=== PATIENT | female | born 1970 | race Caucasian/White ===

== ENCOUNTER 2016-05-11 11:05 | Day surgery (SDC) | payer OTHER ==
[~2016-05-11] VITALS: Ht 170.2 cm; Wt 133.8 kg
[~2016-05-11 11:05] MED LIST: ARTHROTEC 751 TABLET PO; BACLOFEN10 MG PO; BENADRYL A12.5 MG/5 PO; BENADRYL25 MG PO; BUSPAR30 MG PO; Benadryl PO; Buspar PO; CALAN SR,COVER240 MG PO; CELEBREX200 MG PO; CELEXA20 MG PO; CILOSTAZOL50 MG PO; CITRUCEL500 MG PO; COLACE100 MG PO; CRANBERRY TABL1 EACH PO; CRANBERRY500 M2 PO; Cranberry Extract PO; DAILY VALUE1 EACH PO; DILAUDID4 MG PO; EFFEXOR75 MG PO; ESTROGEN; ESTROVEN MOOD400 MCG PO; EXCEDRIN MIGRA1 EAC3 PO; FLONASE16 G1 BOTH NARES; KEFLEX500 MG PO; KEPPRA500 MG PO; KLONOPIN0.5 M1 PO; KlonoPIN PO; LASIX10 MG PO; LIDODERM 5% P1 PATCH TD; Lioresal PO; MIDRIN1 CAPSULE PO; MIRALAX17 GM PO; MORPHINE; MUCINEX600 MG PO; NAMENDA10 MG PO; NEURONTIN100 MG PO; NEURONTIN300 MG PO; NEXIUM40 MG PO; NICOTINE PATCH1 EAC1 TD; Neurontin PO; OMEPRAZOLE40 M1 PO; OPANA ER10 MG PO; PREVACID30 MG PO; PROMETHAZINE HC25 M1 PO; Phenergan PO; Prevacid Solutab PO; RESTORIL15 MG PO; SENOKOT,SENN1 TABLET PO; SLEEPING PILL; SOMA250 MG PO; TOPAMAX100 MG PO; TOPAMAX200 MG PO; TYLENOL EXTRA500 MG PO; Theragran PO; VALIUM5 MG PO; VIMPAT150 MG PO; VITAMIN D-3 401 EACH PO; Vicodin,Norco 5/325 PO; WELLBUTRIN XL150 MG PO; WELLBUTRIN XL300 MG PO; ZANAFLEX4 MG PO; celeBREX PO; celeXA PO
[2016-05-11] MEDS ORDERED: AMLODIPINE BESYL5 MG PO (11:47)
[2016-05-11 11:49] VITALS: BP 146/100
[2016-05-11 23:25] VITALS: BP 157/84
[2016-05-12 00:28] VITALS: BP 157/84
[2016-05-12 05:55] VITALS: BP 148/76
[2016-05-12 08:11] VITALS: BP 133/85
== END 2016-05-12 11:05 | disposition home or self-care (01) ==
LOC: SDC → 3EAST 14:33 → 2SOUTH 14:33 → 3EAST 22:59
PROC: 0PTM0ZZ Resection of Right Carpal, Open Approach (ICD-10-PCS; principal; 2016-05-11)
DX: M19.031 Primary osteoarthritis, right wrist (principal); S62.124A Nondisplaced fracture of lunate [semilunar], right wrist, initial encounter for closed fracture; M25.531 Pain in right wrist; S63.511A Sprain of carpal joint of right wrist, initial encounter
CPT/HCPCS: 73100; 76000; G0378; J0330; J0360; J0690; J1885; J2250; J2405; J3010; S0020

== ENCOUNTER 2017-07-25 22:04 | Inpatient (IN) | payer OTHER ==
[~2017-07-25] VITALS: Ht 170.2 cm; Wt 146.0 kg
[~2017-07-25 22:04] MED LIST changes: +AMLODIPINE BESYL5 MG PO; +ANTIVERT25 MG PO; +CHEST CONGESTI400 MG PO; +LAMICTAL ODT25 MG PO; +LISINOPRIL10 MG PO; -MUCINEX600 MG PO; +VALIUM10 MG PO; -VALIUM5 MG PO; +VENLAFAXINE HCL75 MG PO; +VIMPAT100 MG PO
[2017-07-26 07:10] VITALS: BP 133/88
[2017-07-26 13:36] VITALS: BP 151/90
[2017-07-26 15:42] VITALS: BP 139/79
[2017-07-26 19:44] VITALS: BP 120/69
[2017-07-26 23:40] VITALS: BP 121/67
[2017-07-27 04:10] VITALS: BP 117/61
[2017-07-27 07:40] VITALS: BP 119/66
[2017-07-27 11:42] VITALS: BP 116/58
[2017-07-27 15:42] VITALS: BP 121/61
[2017-07-27 18:06] VITALS: BP 109/59
[2017-07-27 20:15] VITALS: BP 123/72
[2017-07-28 00:15] VITALS: BP 118/62
[2017-07-28 03:43] VITALS: BP 117/64
[2017-07-28 04:00] VITALS: BP 117/64
[2017-07-28 07:34] VITALS: BP 130/76
[2017-07-28 11:07] VITALS: BP 134/66
[2017-07-28 16:30] VITALS: BP 137/75
[2017-07-28] MEDS ORDERED: OXYCODONE-APAP1 EACH PO (16:43)
[2017-07-28] MEDS ORDERED: OXYCONTIN15 MG PO (16:43)
[2017-07-28] MEDS ORDERED: BACTROBAN NASAL1 G1 BOTH NARES (16:45)
== END 2017-07-28 17:50 | disposition home or self-care (01) | DRG 460 ==
LOC: ENRESERV 22:04 → 2SOUTH 07-26 06:38 → ENRESERV 07-26 11:11 → 3EAST 07-26 13:36 → 2SOUTH 07-26 14:10 → 3EAST 07-28 17:50
PROVIDERS: Neurological Surgery
PROC: 0SG00A0 Fusion of Lumbar Vertebral Joint with Interbody Fusion Device, Anterior Approach, Anterior Column, Open Approach (ICD-10-PCS; principal; 2017-07-26)
PROC: 07DR3ZZ Extraction of Iliac Bone Marrow, Percutaneous Approach (ICD-10-PCS; principal; 2017-07-26)
DX: M43.16 Spondylolisthesis, lumbar region (principal); M99.03 Segmental and somatic dysfunction of lumbar region; M46.87 Other specified inflammatory spondylopathies, lumbosacral region; M51.16 Intervertebral disc disorders with radiculopathy, lumbar region; E66.01 Morbid (severe) obesity due to excess calories; Z68.42 Body mass index [BMI] 45.0-49.9, adult; G89.4 Chronic pain syndrome; M54.5 Low back pain; M48.00 Spinal stenosis, site unspecified; I10 Essential (primary) hypertension; R56.9 Unspecified convulsions; R73.9 Hyperglycemia, unspecified; K21.9 Gastro-esophageal reflux disease without esophagitis; M25.561 Pain in right knee; F17.200 Nicotine dependence, unspecified, uncomplicated; Z98.1 Arthrodesis status; Z98.84 Bariatric surgery status
CPT/HCPCS: 72100; 76000; 82948; 86850; 86900; 86901; 93005; 94799; G0480; J0330; J0690; J1100; J1170; J1885; J2250; J2300; J2405; J2930; J3010; J3480